=== PATIENT | male | born 1965 | race African-American/Black ===

== ENCOUNTER 2018-11-19 20:39 | Observation (INO) | payer OTHER ==
[2018-11-19] MEDS ORDERED: ASPIRIN 81 MG CHEWABLE TAB PO ONE (20:58)
--- NOTE | 2018-11-19 21:00 | EDPHY ---
H & P Stated Complaint: SOB x 3 weeks, midsternal "chest feels weird" x 1 day Time Seen by Provider: 11/19/18 20:49 HPI/ROS: CHIEF COMPLAINT: Chest discomfort HISTORY OF PRESENT ILLNESS: Patient is a 52-year-old man with history of type 2 diabetes and obesity with high blood pressure who comes to the emergency department complaining that his chest feels unusual. He cannot quite describe it. He states that it is not painful but feels different. Not heavy. No nausea or vomiting. No diaphoresis. No lightheadedness. He also describes shortness of breath with exertion for the last several weeks. He has noticed it particularly when he climbs the stairs. His states that he could not clean the bathroom without stopping to breathe. No recent travel. No leg swelling or pain. No recent fevers or illness. No cough. Used to smoke but no longer does. Severity: Moderate Modifying factors: None not worsened by palpation or movement REVIEW OF SYSTEMS: Constitutional: denies: chills, fever, recent illness, recent injury EENTM: denies: blurred vision, double vision, nose congestion Respiratory: denies: cough, shortness of breath Cardiac: See HPI Gastrointestinal/Abdominal: denies: abdominal pain, diarrhea, nausea, vomiting, blood streaked stools Genitourinary: denies: dysuria, frequency, hematuria, pain Musculoskeletal: denies: joint pain, muscle pain Skin: denies: lesions, rash, jaundice, bruising Neurological: denies: headache, numbness, paresthesia, tingling, dizziness, weakness Hematologic/Lymphatic: denies: blood clots, easy bleeding, easy bruising Immunologic/allergic: denies: HIV/AIDS, transplant 10 systems reviewed and negative except as noted EXAM: GENERAL: Well-appearing, well-nourished and in no acute distress. HEAD: Atraumatic, normocephalic. EYES: Pupils equal round and reactive to light, extraocular movements intact, sclera anicteric, conjunctiva are normal. ENT: TMs normal, nares patent, oropharynx clear without exudates. Moist mucous membranes. NECK: Normal range of motion, supple without lymphadenopathy or JVD. LUNGS: Breath sounds clear to auscultation bilaterally and equal. No wheezes rales or rhonchi. HEART: Regular rate and rhythm without murmurs, rubs or gallops. ABDOMEN: Soft, nontender, normoactive bowel sounds. No guarding, no rebound. No masses appreciated. BACK: No CVA tenderness, no spinal tenderness, step-offs or deformities EXTREMITIES: Normal range of motion, no pitting or edema. No clubbing or cyanosis. NEUROLOGICAL: Cranial nerves II through XII grossly intact. Normal speech, normal gait. 5/5 strength, normal movement in all extremities, normal sensation , normal reflexes PSYCH: Normal mood, normal affect. SKIN: Warm, dry, normal turgor, no visible rashes or lesions. Source: Patient Exam Limitations: No limitations - Personal History Current Tetanus Diphtheria and Acellular Pertussis (TDAP): Yes Tetanus Vaccine Date: within 10 years - Medical/Surgical History Hx Asthma: No Hx Chronic Respiratory Disease: No Hx Diabetes: Yes Hx Cardiac Disease: No Hx Renal Disease: No Hx Cirrhosis: No Hx Alcoholism: No Hx HIV/AIDS: No Hx Splenectomy or Spleen Trauma: No Other PMH: DM type 2, HTN, Hep B, appendectomy - Family History Significant Family History: No pertinent family hx - Social History Smoking Status: Former smoker Alcohol Use: Sober Constitutional: Initial Vital Signs Temperature (C) 37.0 C 11/19/18 20:43 Heart Rate 64 11/19/18 20:43 Respiratory Rate 16 11/19/18 20:43 Blood Pressure 115/68 11/19/18 20:43 O2 Sat (%) 99 11/19/18 20:43 O2 Delivery Mode Room Air Allergies/Adverse Reactions: No Known Allergies Allergy (Verified 11/19/18 20:51) Home Medications: Medication Instructions Recorded Atenolol 11/19/18 Felodipine 11/19/18 Losartan Potassium 11/19/18 Metformin HCl 11/19/18 Pravastatin Sodium 11/19/18 Spironolactone 11/19/18 Medical Decision Making - Diagnostics EKG Interpretation: An EKG obtained and was read and documented in trace view. Please see trace view for full reading and report. Sinus rhythm, no acute ischemic changes Imaging Results: Imaging Impressions Chest X-Ray 11/19/18 20:56 Impression: Query low-grade congestive failure. Imaging: Discussed imaging studies w/ orthopedically impaired teacher Radiologist ED Course/Re-evaluation: 9:18 p.m. the patient is severely anemic. He reports occasional dark stools. He tells me that the [facility] has been trying to get him to go colonoscopy because he is chronically anemic. Have sent for type and screen. He will require transfusion further workup. Hemoccult taken. Does not appear grossly bloody. 920 p.m. patient and accept transfer to [facility]. Discussed the case with Dr. Arriaga who will admit. Have ordered type and screen which will be. Differential Diagnosis: Partial list of the Differential diagnosis considered include but were not limited to; anemia, acute coronary disease, CHF and although unlikely based on the history and physical exam, I also considered PE, infection. - Data Points Laboratory Results: Laboratory Results 11/19/18 21:00 11/19/18 11/19/18 11/19/18 21:03 21:03 21:00 WBC RBC Hgb Hct MCV MCH MCHC RDW Plt Count MPV Neut % (Auto) Lymph % (Auto) [place] % (Auto) Eos % (Auto) Baso % (Auto) Nucleat RBC Rel Count Absolute Neuts (auto) Absolute Lymphs (auto) Absolute Monos (auto) Absolute Eos (auto) Absolute Basos (auto) Absolute Nucleated RBC Immature Gran % Immature Gran # Platelet Estimate Polychromasia Hypochromasia Microcytic Cells Schistocytes Smear Review By POC Sodium 136 mEq/L mEq/L (135-145) POC Potassium 4.1 mEq/L mEq/L (3.3-5.0) POC Chloride 99.0 mEq/L mEq/L (97-110) POC Total CO2 27 mEq/L mEq/L (22-31) POC BUN 20 mg/dL mg/dL (7-23) POC Creatinine 0.9 mg/dL mg/dL (0.7-1.3) POC Glucose 121 mg/dL H mg/dL (70-100) POC Calcium 9.1 mg/dL mg/dL (8.5-10.4) POC Total Bilirubin 1.0 mg/dL mg/dL (0.1-1.4) POC AST 34 IU/L IU/L (17-59) POC ALT 32 IU/L IU/L (21-72) POC Alk Phosphatase 57 IU/L IU/L (38-126) POC Troponin I 0.01 ng/mL ng/mL (0.00-0.08) POC Total Protein 6.7 g/dL g/dL (6.3-8.2) POC Albumin 3.3 g/dL L g/dL (3.5-5.0) Patient ABO/Rh O POSITIVE Antibody Screen NEGATIVE Crossmatch IS Only See Detail 11/19/18 21:00 WBC 7.48 10^3/uL 10^3/uL (3.80-9.50) RBC 3.26 10^6/uL L 10^6/uL (4.40-6.38) Hgb 5.2 g/dL L* g/dL (13.7-17.5) Hct 19.0 % L % (40.0-51.0) MCV 58.3 fL L fL (81.5-99.8) MCH 16.0 pg L pg (27.9-34.1) MCHC 27.4 g/dL L g/dL (32.4-36.7) RDW 18.6 % H % (11.5-15.2) Plt Count 243 10^3/uL 10^3/uL (150-400) MPV TNP Neut % (Auto) 80.2 % H % (39.3-74.2) Lymph % (Auto) 9.8 % L % (15.0-45.0) [place] % (Auto) 9.1 % % (4.5-13.0) Eos % (Auto) 0.3 % L % (0.6-7.6) Baso % (Auto) 0.3 % % (0.3-1.7) Nucleat RBC Rel Count 1.0 % H % (0.0-0.2) Absolute Neuts (auto) 6.29 10^3/uL 10^3/uL (1.70-6.50) Absolute Lymphs (auto) 0.77 10^3/uL L 10^3/uL (1.00-3.00) Absolute Monos (auto) 0.71 10^3/uL 10^3/uL (0.30-0.80) Absolute Eos (auto) 0.02 10^3/uL L 10^3/uL (0.03-0.40) Absolute Basos (auto) 0.02 10^3/uL 10^3/uL (0.02-0.10) Absolute Nucleated RBC 0.08 10^3/uL H 10^3/uL (0-0.01) Immature Gran % 0.3 % % (0.0-1.1) Immature Gran # 0.02 10^3/uL 10^3/uL (0.00-0.10) Platelet Estimate ADEQUATE (ADEQ) Polychromasia 2+ H Hypochromasia 2+ H Microcytic Cells 3+ H Schistocytes 1+ H Smear Review By Pending POC Sodium POC Potassium POC Chloride POC Total CO2 POC BUN POC Creatinine POC Glucose POC Calcium POC Total Bilirubin POC AST POC ALT POC Alk Phosphatase POC Troponin I POC Total Protein POC Albumin Patient ABO/Rh Antibody Screen Crossmatch IS Only Medications Given: Sodium Chloride (Ns) 1,000 mls @ 75 mls/hr IV CONT IT Stop: 05/18/19 22:14 Last Admin: 11/19/18 23:43 Dose: 1,000 mls Discontinued Medications Aspirin (Aspirin) 324 mg PO EDNOW ONE Stop: 11/19/18 20:59 Last Admin: 11/19/18 21:00 Dose: 324 mg Point of Care Test Results: Chemistry 11/19/18 11/19/18 21:03 21:03 POC Sodium 136 mEq/L mEq/L (135-145) POC Potassium 4.1 mEq/L mEq/L (3.3-5.0) POC Chloride 99.0 mEq/L mEq/L (97-110) POC Total CO2 27 mEq/L mEq/L (22-31) POC BUN 20 mg/dL mg/dL (7-23) POC Creatinine 0.9 mg/dL mg/dL (0.7-1.3) POC Glucose 121 mg/dL H mg/dL (70-100) POC Calcium 9.1 mg/dL mg/dL (8.5-10.4) POC Total Bilirubin 1.0 mg/dL mg/dL (0.1-1.4) POC AST 34 IU/L IU/L (17-59) POC ALT 32 IU/L IU/L (21-72) POC Alk Phosphatase 57 IU/L IU/L (38-126) POC Troponin I 0.01 ng/mL ng/mL (0.00-0.08) POC Total Protein 6.7 g/dL g/dL (6.3-8.2) POC Albumin 3.3 g/dL L g/dL (3.5-5.0) Comprehensive Metabolic Panel CMP Collection Date 11/19/18 CMP Collection Time 21:03 D-Dimer D-Dimer Collection Date 11/19/18 D-Dimer Collection Time 21:03 D-Dimer (ng/ml) <100 Departure - Departure Disposition: [facility] Inpatient Acute Clinical Impression: Shortness of breath Anemia Qualifiers: Anemia type: unspecified type Qualified Code(s): D64.9 - Anemia, unspecified Chest pain Qualifiers: Chest pain type: unspecified Qualified Code(s): R07.9 - Chest pain, unspecified Condition: Fair
--- NOTE | 2018-11-19 21:18 | CPEKG ---
Test Reason : OPEN Blood Pressure : / mmHG Vent. Rate : 061 BPM Atrial Rate : 061 BPM P-R Int : 194 ms QRS Dur : 098 ms QT Int : 414 ms P-R-T Axes : 028 -01 005 degrees QTc Int : 417 ms Sinus rhythm Confirmed by Tai Wiggins ([id number]) on 11/19/2018 9:17:45 PM Referred By: Tai Wiggins Confirmed By:Tai Wiggins
[2018-11-19] MEDS ORDERED: HYDROCODONE/APAP 5/325 TAB PO PRN (22:09)
[2018-11-19] MEDS ORDERED: ONDANSETRON 4 MG/2 ML VIAL IVP PRN (22:09)
[2018-11-19] MEDS ORDERED: ACETAMINOPHEN 325 MG TAB PO PRN (22:09)
[2018-11-19] MEDS ORDERED: ONDANSETRON DISINTEGRATING 4 MG TAB PO PRN (22:09)
[2018-11-19] MEDS ORDERED: NS 1,000 ML IV SCH (22:15)
[2018-11-19 23:42] LABS: PLATELET COUNT 243 10^3/uL (150-400)
[2018-11-19 23:55] LABS: INR 1.12 (0.83-1.16)
[2018-11-20 00:54] LABS: PLATELET COUNT 235 10^3/uL (150-400)
--- NOTE | 2018-11-20 01:46 | PDGENHP ---
History and Physical - Chief Complaint fatigue, chest discomfort - History of Present Illness Source - Patient provides history and appears reliable. is at bedside and supplements details. EMR reviewed and case discussed with accepting hospitalist. HPI - This is a very pleasant 52 yo M with pmhx significant for chronic HBV, longstanding history of anemia,HTN, DM II, JENNY and chronic back pain who presents to the ED at [facility] this evening with complaints of fatigue and chest discomfort. Patient reports an upper/midsternal "sensation" that started while at rest. He denies any pain or pressure. No dysphagia. No nausea/vomiting/ diaphoresis. Patient also notes for the last 3 weeks he has been feeling increasingly fatigued. He denies any lightheadedness/presyncope/dyspnea. no LE edema, orthopnea, PND. Patient notes he has a previous anemia work up approximately 12 years ago at the [place] including labs, EGD/Colonoscopy. Patient reports endoscopy was not revealing and anemia was not this severe. History Information - Allergies/Home Medication List Allergies/Adverse Reactions: No Known Allergies Allergy (Verified 11/19/18 20:51) Home Medications: Atenolol 11/19/18 [Last Taken Unknown] Felodipine 11/19/18 [Last Taken Unknown] Losartan Potassium 11/19/18 [Last Taken Unknown] Metformin HCl 11/19/18 [Last Taken Unknown] Pravastatin Sodium 11/19/18 [Last Taken Unknown] Spironolactone 11/19/18 [Last Taken Unknown] I have personally reviewed and updated: family history, medical history, social history, surgical history - Past Medical History diabetes type 2, hypertension Additional medical history: HBV. DM II. HTN. JENNY. chronic back pain. - Surgical History Additional surgical history: egd/c-scope. 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 Review of Systems Review of Systems: ROS: 10pt was reviewed & negative except for what was stated in HPI & below Constitutional: Reports: chills (always cold. ), other (weight gain 8 lbs. good appetite. ). Denies: fever Cardiac: Reports: other (see hpi. ). Denies: edema, lightheadedness, palpitations Respiratory: Reports: no symptoms Gastrointestinal: Reports: no symptoms Genitourinary: Reports: no symptoms Muscolosketal: Reports: no symptoms Skin: Reports: other (pale) Neurological: Reports: no symptoms Hematologic/Lymphatic: Reports: anemia. Denies: easy bleeding, easy bruising Physical Exam Physical Exam: Selected Entries 11/19/18 20:43 Blood Pressure Automatic Method Heart Rate 64 Respiratory 16 Rate O2 Sat (%) 99 Temperature (C) 37.0 C Blood Pressure 115/68 Mean Arterial 83 Pressure (MAP) O2 Delivery Room Air Mode Temperature Oral Source Temp Pulse Resp BP Pulse Ox 36.7 C 59 L 14 110/58 L 93 11/20/18 00:41 11/20/18 00:41 11/20/18 00:41 11/20/18 00:41 11/20/18 00:41 O2 (L/minute) 0 Eyes: PERRL (decreased reactivity to light bilaterally but symmetric. ), anicteric sclera, EOMI, No scleral injection Ears, Nose, Mouth, Throat: moist mucous membranes, other (pale mucous membranes) , No poor dentition Cardiovascular: regular rate and rhythym, no murmur, rub, or gallop, No edema Peripheral Pulses: 2+: dorsalis-pedis (R), dorsalis-pedis (L) Respiratory: no respiratory distress, no rales or rhonchi, clear to auscultation , No inspiratory crackles Gastrointestinal: normoactive bowel sounds, soft, non-tender abdomen, no palpable masses, distension (obese abdomen with some minimal distension), No ascites Genitourinary: no bladder tenderness, No chapa in urethra Skin: warm, no rashes or abrasions Neurologic: AAOx3, sensation intact bilaterally, other (grossly nonfocal. ), No facial droop Psychiatric: interacting appropriately, not anxious, not encephalopathic, thought process linear, other (patient thought process appropriate. he is pleasant and cooperative. ) Lab Data & Imaging Review 11/19/18 23:36 WBC 8.03 10^3/uL (3.80-9.50) 11/19/18 23:36 RBC 3.33 10^6/uL (4.40-6.38) L 11/19/18 23:36 Hgb 5.3 g/dL (13.7-17.5) L* 11/19/18 23:36 Hct 19.3 % (40.0-51.0) L 11/19/18 23:36 MCV 58.0 fL (81.5-99.8) L 11/19/18 23:36 MCH 15.9 pg (27.9-34.1) L 11/19/18 23:36 MCHC 27.5 g/dL (32.4-36.7) L 11/19/18 23:36 RDW 18.3 % (11.5-15.2) H 11/19/18 23:36 Plt Count 235 10^3/uL (150-400) 11/19/18 23:36 MPV TNP 11/19/18 23:36 Neut % (Auto) 76.9 % (39.3-74.2) H 11/19/18 23:36 Lymph % (Auto) 14.1 % (15.0-45.0) L 11/19/18 23:36 [place] % (Auto) 8.6 % (4.5-13.0) 11/19/18 23:36 Eos % (Auto) 0.1 % (0.6-7.6) L 11/19/18 23:36 Baso % (Auto) 0.1 % (0.3-1.7) L 11/19/18 23:36 Nucleat RBC Rel Count 0.7 % (0.0-0.2) H 11/19/18 23:36 Absolute Neuts (auto) 6.17 10^3/uL (1.70-6.50) 11/19/18 23:36 Absolute Lymphs (auto) 1.13 10^3/uL (1.00-3.00) 11/19/18 23:36 Absolute Monos (auto) 0.69 10^3/uL (0.30-0.80) 11/19/18 23:36 Absolute Eos (auto) 0.01 10^3/uL (0.03-0.40) L 11/19/18 23:36 Absolute Basos (auto) 0.01 10^3/uL (0.02-0.10) L 11/19/18 23:36 Absolute Nucleated RBC 0.06 10^3/uL (0-0.01) H 11/19/18 23:36 Immature Gran % 0.2 % (0.0-1.1) 11/19/18 23:36 Immature Gran # 0.02 10^3/uL (0.00-0.10) 11/19/18 23:36 Platelet Estimate ADEQUATE (ADEQ) 11/19/18 23:36 Polychromasia 2+ H 11/19/18 23:36 Hypochromasia 3+ H 11/19/18 23:36 Microcytic Cells 3+ H 11/19/18 23:36 Schistocytes 1+ H 11/19/18 21:00 PT 14.0 SEC (12.0-15.0) 11/19/18 23:36 INR 1.12 (0.83-1.16) 11/19/18 23:36 APTT 29.4 SEC (23.0-38.0) 11/19/18 23:36 POC Sodium 136 mEq/L (135-145) 11/19/18 21:03 POC Potassium 4.1 mEq/L (3.3-5.0) 11/19/18 21:03 POC Chloride 99.0 mEq/L (97-110) 11/19/18 21:03 POC Total CO2 27 mEq/L (22-31) 11/19/18 21:03 POC BUN 20 mg/dL (7-23) 11/19/18 21:03 POC Creatinine 0.9 mg/dL (0.7-1.3) 11/19/18 21:03 POC Glucose 121 mg/dL (70-100) H 11/19/18 21:03 POC Calcium 9.1 mg/dL (8.5-10.4) 11/19/18 21:03 Iron < 10.0 mcg/dL (49.0-199.0) L 11/19/18 23:36 TIBC 456 ug/dL (260-490) 11/19/18 23:36 Ferritin 1.7 ng/mL (17.9-464.0) L 11/19/18 23:36 POC Total Bilirubin 1.0 mg/dL (0.1-1.4) 11/19/18 21:03 POC AST 34 IU/L (17-59) 11/19/18 21:03 POC ALT 32 IU/L (21-72) 11/19/18 21:03 POC Alk Phosphatase 57 IU/L (38-126) 11/19/18 21:03 POC Troponin I 0.01 ng/mL (0.00-0.08) 11/19/18 21:03 Troponin I < 0.012 ng/mL (0.000-0.034) 11/19/18 23:36 POC Total Protein 6.7 g/dL (6.3-8.2) 11/19/18 21:03 POC Albumin 3.3 g/dL (3.5-5.0) L 11/19/18 21:03 TSH 1.260 uIU/mL (0.465-4.680) 11/19/18 23:36 Patient ABO/Rh O POSITIVE 11/19/18 21:00 Antibody Screen NEGATIVE 11/19/18 21:00 Crossmatch IS Only See Detail 11/19/18 21:00 Imaging Review: PA and Lateral Chest History: Chest pain. Findings: The heart is borderline enlarged. There is minimal pulmonary venous prominence. No pleural effusion is seen.. The lungs are clear. A pneumothorax is not identified. Impression: Query low-grade congestive failure. Dictated By: Oni Singleton MD EKG additional interpertation: NSR 60s. no acute ST changes. QTc 417. t wave inversion III. Assessment & Plan Assessment: This is a very pleasant 52 yo M with pmhx significant for chronic HBV, longstanding history of anemia,HTN, DM II, JENNY and chronic back pain who presents to the ED at [facility] this evening with complaints of fatigue and chest discomfort. #Anemia (Acute) - microcytic anemia suspcious for a anemia of chronic blood loss. check occult stool given patient complaint of regularly blood bowel movements. neg gauic in ED. iron studies in process but iron level is severely depleted. no evidence of hemolyzation at this point. Patient additionally with history of HBV but LFTs and coags WNL. discuss with GI in AM as per day team. transfuse 2 units now and HH check. patient compensated. hh goal >01/24. #Chest discomfort (Acute) - patient symptoms resolved. he denies and history of chest pain. no associated SOB, palpitations, diaphoresis. possibly 2/2 severe enemia. am troponin and ekg. HEART score - 3. morphine/nitro prn chest pain. #fatigue -2/2 anemia. TSH WNL. symptoms improving with transfusion. chronic medical issues #benign essential HTN - BPs low normal. monitor currently while undergoing transfusion. consider resuming home medications stepwise. #HLD - resume statin #DM II - continue metformin. #HBV - spironolactone. appears very well compensated FEN - IVF with prbc. electrolyte monitoring and replacement prn. NPO after midnight PPX - SCDs. holding anticoagulation in setting of anemia COR - FULL Dispo - Patient admitted to inpatient status on PCU floor for additional evaluation of anemia and cardiac monitoring. anticipate > 2 midnight stay.
[2018-11-20 08:13] LABS: PLATELET COUNT 211 10^3/uL (150-400)
--- NOTE | 2018-11-20 08:39 | ASMTCMCOM ---
CM Note CM Note Notes: Chart reviewed for discharge planning purposes. 52 year old male admitted via ED with c/o fatigue and vague chest discomfort. Normally lives independent with . Profoundly anemic. CM to follow for needs. Plan: TBD Date Signed: 11/20/2018 08:38 AM Electronically Signed By:Maryellen Holguin RN
--- NOTE | 2018-11-20 10:10 | HOSPPROG ---
Hospitalist Progress Note Assessment/Plan: 52 yo M w longstanding brbpr here w symptomatic severe iron deficiency anemia anemia: chronic blood loss has hemorrhoids but this seems exemplary blood loss for just that warrants endoscopy GI eval pending NPO for npw iron deficiency: has received 2 units will give IV iron daily hep B: continue entacavir unclear if sig liver disease labs suggest mild, if any, liver disease htn: hold meds today given sig anemia dispo: inpt proph: hold Subjective: case d/w dr wills. notes longstanding h/o brbpr. no known liver disease Objective: Vital Signs Temp Pulse Resp BP Pulse Ox 36.6 C 62 18 125/72 H 94 11/20/18 08:00 11/20/18 08:00 11/20/18 08:00 11/20/18 08:00 11/20/18 08:00 Laboratory Results 11/20/18 07:41 11/20/18 07:41 11/19/18 11/20/18 11/21/18 05:59 05:59 05:59 Intake Total 1003 Balance 1003 PT 14.0 SEC (12.0-15.0) 11/19/18 23:36 INR 1.12 (0.83-1.16) 11/19/18 23:36 - Physical Exam Constitutional: no apparent distress, appears nourished Eyes: PERRL, anicteric sclera Ears, Nose, Mouth, Throat: moist mucous membranes, hearing normal Cardiovascular: regular rate and rhythym, no murmur, rub, or gallop Respiratory: no respiratory distress, no rales or rhonchi Gastrointestinal: normoactive bowel sounds, soft, non-tender abdomen Genitourinary: No chapa in urethra Skin: warm, normal color Musculoskeletal: full muscle strength, normal joint ROM Neurologic: AAOx3 ICD10 Worksheet Patient Problems: Problems Problem Status Onset Anemia Acute Chest pain Acute Shortness of breath Acute
[2018-11-20] MEDS: SODIUM FERRIC GLUCONAT/SUCROSE 125 MG in NS 100 ML IV SCH (10:56)
--- NOTE | 2018-11-20 11:41 | PDMN ---
Medical Necessity Medical necessity: Pt meets inpt criteria per MD order and MCG M-35, Anemia, Iron Deficiency or Unspecified, A-1 days, inpt adm indicated for chronic blood loss (longstanding brbpr), may need endoscopy, GI eval pending, H/H 5.2 on admission, has rec'd 2U blood, iron severely low at <10.0 and ferritin 1.7, IV iron to be given, NPO for possible GI procedure. 52 y/o w/PMH of chronic HBV, anemia, DM2, JENNY and chronic back pain admitted w/symptomatic severe iron deficiency anemia, fatigue, and acute chest discomfort. Est LOS>2MN for further eval/management of above.
--- NOTE | 2018-11-20 11:54 | GCON ---
[f rep st] CONSULTATION DATE OF CONSULTATION: 11/20/2018 REQUESTING PROVIDERS: Dr. Skip Díaz HISTORY OF PRESENT ILLNESS: Dear Dr. Díaz: Thank you very kindly for asking me to evaluate the patient in consultation for a chief complaint of hematochezia and iron deficiency anemia. He is a pleasant 52-year-old gentleman who was admitted to the hospital yesterday because of fatigue and chest discomfort. He describes the pain as something m ore like a dull ache in his midsternum. He had no shortness of breath, but he did notice exertional fatigue. He was found to be significantly anemic with a hemoglobin of 5. He has a history of chroni c hepatitis B without known cirrhosis, and has been on entecavir for a very long time, which sounds l nayeli through the [facility]. He has underlying hypertension and diabetes. The patient says th at he had anemia previously evaluated, but it has been somewhat remote. He thinks about maybe 10 or 12 years ago he had an upper endoscopy and colonoscopy for evaluation of iron deficiency, and says th at he was not found to have a reason for it. His only real symptom is for long-standing and ongoing hematochezia. He describes daily bright red blood per rectum that is painless. The bowel movements otherwise look normal. There has been no melena or hematemesis. He currently denies any abdominal p ain. PAST MEDICAL HISTORY: Significant for hypertension, diabetes, sleep apnea, chronic back pain, chroni c hepatitis B on entecavir, iron deficiency anemia, hematochezia attributed to hemorrhoids. PAST SURGICAL HISTORY: Appendectomy. He had an upper endoscopy and colonoscopy about 12 years ago t hat he says was negative. FAMILY HISTORY: Negative for anemia or colon cancer. SOCIAL HISTORY: The patient is a remote tobacco smoker. He works at [employer] in [employer]. He is a . No substance abuse. No tobacco abuse. No alcoholism. REVIEW OF SYSTEMS: CONSTITUTIONAL: Denies fever or chills. No weight loss. He does feel fatigued. HEENT: No epistaxis. No headache. No sore throat. PULMONARY: Shortness of breath with exertion . CARDIOVASCULAR: He has had some midsternal chest pain, but not currently. No palpitations. No s yncope. GI: Reports chronic bright red blood per rectum. No other gastrointestinal symptoms. RHEU MATOLOGIC: Chronic back pain. No other joint swelling or pain. DERMATOLOGIC: No pruritus or rash. ENDOCRINE: He says he feels cold a good deal of the time. No excessive thirst. GENITOURINARY: Den ies hematuria. No flank pain. NEURO: Has no paresthesias, falls or weakness. ALLERGIES: None known. PHYSICAL EXAM: VITAL SIGNS: Blood pressure is 125/72, his pulse is 62 and regular, respirations are 18, oxygenation is 94% on room air, temperature is 36.6. GENERAL: No acute distress. HEENT: Scle marko anicteric. NECK: Supple. No blood in the oropharynx. PULMONARY: Lungs clear. CARDIOVASCULAR : Regular rate and rhythm. No murmur, rub, or gallop. GI: Abdomen is obese, but soft, nontender, nondistended. No abdominal bruit. MUSCULOSKELETAL: No joint deformity. No palmar erythema. DERMAT OLOGIC: No spider angiomata. No notable jaundice. NEUROLOGIC: Alert to person, place, and time wi th normal speech and affect. Nonfocal motor. Gait is not ataxic. DATABASE: Includes the following: CBC on admission shows a white blood count of 7.4, hemoglobin is 5.2, with a hematocrit of 19, MCV is 58.3, RDW 18.6, platelets are 243. He has received 2 units of p acked cells and his hematocrit is now 23.1 with a hemoglobin of 6.7. INR is 1.12. Sodium 136, potas sium 4.2, chloride 103, bicarbonate 23, BUN 17, creatinine 0.9, glucose is 99. Iron is less than 10 with a ferritin of 1.7. TSH is 1.26. LFTs show an AST of 34, ALT of 32, alkaline phosphatase 57, al bumin 3.3, total protein 6.7. IMPRESSION: 1. Anemia, microcytic. 2. Iron deficiency. 3. Hematochezia. 4. Hepatitis B. 5. Sleep apnea. 6. Diabetes. 7. Hypertension. RECOMMENDATIONS: 1. He has received 2 units of packed red blood cells and his hematocrit is 23, and I believe good en ough for now. 2. Iron infusion today. 3. IV PPI twice daily. 4. Clear liquid diet today. 5. GoLYTELY prep overnight. 6. EGD, colonoscopy will be arranged for tomorrow to interrogate his iron deficiency anemia. 7. Further recommendations to follow the results of his procedures. 8. If he has no other source of bleeding and therefore it is felt perhaps his chronic hematochezia f rom hemorrhoids are the source of this, then consideration for surgical management of hemorrhoidal bl eeding will be considered. 9. Whether or not to perform a capsule endoscopy prior to considering hemorrhoidal surgery will need to be entertained. /[id number]/MODL
[2018-11-20] MEDS ORDERED: PEG 3350/NA SULF,BICARB,CL/KCL (GAVILYTE-G) 4000 ML BTL PO ONE (18:00)
[2018-11-21] MEDS ORDERED: PRAVASTATIN SODIUM 10 MG TAB PO SCH (09:00)
--- NOTE | 2018-11-21 09:46 | PDANEPAE ---
ANE History of Present Illness 52 yo egd/colonoscopy ANE Past Medical History - Cardiovascular History Hx Hypertension: Yes Hx Arrhythmias: No Hx Chest Pain: No Hx Coronary Artery / Peripheral Vascular Disease: No Hx CHF / Valvular Disease: No Hx Palpitations: No - Pulmonary History Hx COPD: No Hx Asthma/Reactive Airway Disease: No Hx Recent Upper Respiratory Infection: No Hx Oxygen in Use at Home: No Hx Sleep Apnea: Yes Sleep Apnea Screening Result - Last Documented: Positive - Endocrine History Hx Diabetes: Yes - Chronic Pain History Chronic Pain: Yes (Lower back pain) ANE Review of Systems Review of Systems: - Exercise capacity METS (RN): 4 METS ANE Patient History - Allergies Allergies/Adverse Reactions: No Known Allergies Allergy (Verified 11/19/18 20:51) - Home Medications Home medications: home medication list seen and reviewed Home Medications: Atenolol [Tenormin 50 mg (*)] 50 mg PO DAILY 11/20/18 [Last Taken 11/19/18] Entecavir 0.5 mg PO DAILY 11/20/18 [Last Taken 11/19/18] Felodipine [Plendil 5 MG (*)] 5 mg PO DAILY 11/20/18 [Last Taken 11/19/18] Losartan/Hydrochlorothiazide [Losartan-Hctz 100-25 mg Tab] 1 each PO DAILY 11/20 [Last Taken 11/19/18] Pravastatin Sodium [Pravachol] 10 mg PO DAILY 11/20/18 [Last Taken 11/19/18] Spironolactone [Aldactone 25 MG (*)] 25 mg PO DAILY 11/20/18 [Last Taken Unknown ] metFORMIN HCL [Metformin ER Gastric] 1,000 mg PO BIDMEAL 11/20/18 [Last Taken ] - NPO status NPO Status: no food or drink >8 hours NPO Since - Liquids (Date): 11/21/18 NPO Since - Liquids (Time): 00:01 NPO Since - Solids (Date): 11/21/18 NPO Since - Solids (Time): 00:01 - Smoking Hx Smoking Status: Former smoker - Alcohol Use Alcohol Use: Sober ANE Labs/Vital Signs - Labs Result Diagrams: 11/20/18 07:41 11/20/18 07:41 - Vital Signs Blood Pressure: 119/76 Heart Rate: 69 Respiratory Rate: 17 O2 Sat (%): 95 Height: 6 ft 5 in Weight: 124 kg ANE Physical Exam - Airway Neck exam: FROM Mallampati Score: Class 2 Mouth exam: normal dental/mouth exam - Pulmonary Pulmonary: no respiratory distress - Cardiovascular Cardiovascular: regular rate and rhythym - ASA Status ASA Status: III ANE Anesthesia Plan Anesthesia Plan: MAC
[2018-11-21] MEDS ORDERED: PROPOFOL/EMULSION 500 MG/50 ML BOTTLE IV ONE (09:55)
[2018-11-21] MEDS ORDERED: fentaNYL 100 MCG/2 ML INJ ONE (09:58)
[2018-11-21] MEDS ORDERED: PROPOFOL 200 MG/20 ML VIAL ONE (10:20)
--- NOTE | 2018-11-21 10:38 | GIREPORT ---
[facility] Surgical Services - Endoscopy Department Patient Name: Willie Andersen Procedure Date: 11/21/2018 9:52 AM Patient Type: Inpatient Attending MD/ ER Physician: Puneet Schwartz MD Procedure: Colonoscopy Indications: Iron deficiency anemia secondary to chronic blood loss, Unexplained iro n deficiency anemia Providers: Puneet Schwartz MD Referring MD: Benita Dueñas MD Medicines: Propofol per Anesthesia = IV general with spont resps Complications: No immediate complications. Estimated blood loss: Minimal. Description of Procedure: After obtaining informed consent, the scope was passed under direct vis ion. Throughout the procedure, the patient's blood pressure, pulse, and oxyg en saturations were monitored continuously. The Colonoscope with irrigatio n channel was introduced through the anus and advanced to the cecum, identified by the appendiceal orifice, ileocecal valve and palpation. T he colonoscopy was performed without difficulty. The patient tolerated the procedure well. The quality of the bowel preparation was good. Findings: The digital rectal exam findings include non-thrombosed external hemorr hoids. A 4 mm polyp was found in the distal descending colon. The polyp was sessile. The polyp was removed with a piecemeal technique using a cold biopsy forceps. Resection and retrieval were complete. Estimated blood loss was minimal. A 7 mm polyp was found in the sigmoid colon. The polyp was semi-sessile . The polyp was removed with a cold snare. Resection and retrieval were compl ete. Estimated blood loss was minimal. Many small-mouthed diverticula were found in the sigmoid colon and descending colon. The exam was otherwise without abnormality. Estimated Blood Loss: Estimated blood loss was minimal. Post Op Diagnosis: - Non-thrombosed external hemorrhoids found on digital rectal exam. - One 4 mm polyp in the distal descending colon, removed piecemeal usin g a cold biopsy forceps. Resected and retrieved. - One 7 mm polyp in the sigmoid colon, removed with a cold snare. Resec ivan and retrieved. - Diverticulosis in the sigmoid colon and in the descending colon. - The examination was otherwise normal. Recommendation: - Await pathology results. - My office will call with the pathology result with 5-7 days. If you h ave not heard from my office by 12-14, do not assume the pathology is alondra l, please call [phone] to get the pathology results. - Repeat colonoscopy in 5 years. - High fiber diet indefinitely. - 30-35 grams of dietary fiber per day. Can use supplemental fiber. - A high fiber diet may decrease risk of complications from diverticulo sis. There is no need to avoid seeds or nuts. - See EGD for other recommendations. PUD accounts for his anemia. - [facility] to [facility] same day. - Return to primary care physician as previously scheduled. - Thank you for allowing me to help in your patient's care. Do not hesi higuera to call with any questions. Attending Participation: I personally performed the entire procedure. Lana Connell M.D Puneet Schwartz MD 11/21/2018 10:37:40 AM This report has been signed electronicallyMattjody Schwartz MD Number of Addenda: 0 Note Initiated On: 11/21/2018 9:52 AM Total Procedure Duration Time 0 hours 14 minutes 59 seconds [email or web address]
[2018-11-21] MEDS ORDERED: ALBUTEROL 3 ML DEYVIAL IH PRN (10:42)
[2018-11-21] MEDS ORDERED: fentaNYL 100 MCG/2 ML INJ IVP PRN (10:42)
[2018-11-21] MEDS ORDERED: NALOXONE HCL 0.4 MG/ML INJ IVP PRN (10:42)
--- NOTE | 2018-11-21 10:43 | GIREPORT ---
[facility] Surgical Services - Endoscopy Department Patient Name: Willie Andersen Procedure Date: 11/21/2018 9:53 AM Patient Type: Inpatient Attending MD/ ER Physician: Puneet Schwartz MD Procedure: Upper GI endoscopy Indications: Suspected upper gastrointestinal bleeding in patient with unexplained i dana deficiency anemia Providers: Puneet Schwartz MD Referring MD: Benita Dueñas MD Medicines: Propofol per Anesthesia = IV general with spont resps Complications: No immediate complications. Estimated blood loss: Minimal. Description of Procedure: After obtaining informed consent, the endoscope was passed under direct vision. Throughout the procedure, the patient's blood pressure, pulse, and oxygen saturations were monitored continuously. The Endoscope was intro duced through the mouth, and advanced to the third part of duodenum. The uppe r GI endoscopy was accomplished without difficulty. The patient tolerated th e procedure well. Findings: The examined esophagus was normal. Few non-bleeding cratered gastric ulcers with no stigmata of bleeding w ere found in the gastric antrum. The largest lesion was 4 mm in largest dimension. Scattered inflammation characterized by erosions, erythema, friability and granularity was found in the gastric body and in the gastric antrum. Biopsies were taken with a cold forceps for histology. Estimated blood loss was minimal. One non-bleeding cratered duodenal ulcer with no stigmata of bleeding w as found in the duodenal bulb. The lesion was 10 mm in largest dimension. Inflammation characterized by erythema, friability and granularity was found in the duodenal bulb, in the second portion of the duodenum and in the third portion of the duodenum. Biopsies were taken with a cold forceps for histology. Estimated blood loss was minimal. The exam was otherwise without abnormality. Estimated Blood Loss: Estimated blood loss was minimal. Post Op Diagnosis: - Normal esophagus. - Non-bleeding gastric ulcers with no stigmata of bleeding. - Gastritis. Biopsied. - One non-bleeding duodenal ulcer with no stigmata of bleeding. - Duodenitis. Biopsied. - The examination was otherwise normal. Recommendation: - Await pathology results. If no h pylori noted, check h pylori antibod y and treat if positive and confirm eradication no sooner then 3 months after antibiotics and off PPI for at least 2 weeks - My office will call with the pathology result with 5-7 days. If you h ave not heard from my office by 12-14, do not assume the pathology is aolndra l, please call [phone] to get the pathology results. - Use Protonix (pantoprazole) 40 mg PO daily for 3 months. - Repeat upper endoscopy in 3 months to check healing. With propofol. - Perform a colonoscopy today. - Return to primary care physician as previously scheduled. - [facility] to [facility]. - Thank you for allowing me to help in your patient's care. Do not hesi higuera to call with any questions. Attending Participation: I personally performed the entire procedure. Lana Connell M.D Puneet Schwartz MD 11/21/2018 10:43:12 AM This report has been signed electronicallyMattcecilyw MD Lana Number of Addenda: 0 Note Initiated On: 11/21/2018 9:53 AM [email or web address]
--- NOTE | 2018-11-21 10:49 | POSTANESTH ---
Post Anesthetic Evaluation Cardiovascular Status: Normal, Stable Respiratory Status: Normal, Stable Level of Consciousness/Mental Status: Can Participate in Eval Pain Control: Adequate, Prn Tx Ordered Nausea/Vomiting Control: Adequate, Prn Tx Ordered Complications Possibly Related to Anesthesia: None Noted
[2018-11-21 11:15] VITALS: BP 123/86
[2018-11-21] MEDS: SODIUM FERRIC GLUCONAT/SUCROSE 125 MG in NS 100 ML IV SCH (12:02)
[2018-11-21] MEDS ORDERED: PANTOPRAZOLE SODIUM 40 MG TAB PO SCH (13:00)
--- NOTE | 2018-11-21 15:06 | ASMTDCNOTE ---
Case Management Discharge Discharge Order Complete? Answers: Yes Patient to Obtain Answers: Independently Medications Transportation Arranged Answers: Family/Friends Family Notified Answers: Yes Discharge Comments Notes: patient medically cleared for discharge to home no needs identified. CM available should needs arise. Date Signed: 11/21/2018 03:05 PM Electronically Signed By:Maryellen Holguin RN
--- NOTE | 2018-11-21 15:06 | ASMTLACE ---
LACE Length of stay for Answers: 1 day current admission Acuity / Level of Answers: Yes Care: Did the patient have an inpatient admission? Comorbidities - select Answers: Chronic pulmonary disease all that apply Diabetes (uncontrolled or controlled) # of Emergency department Answers: 1-2 visits in the last 6 months Score: 8 Date Signed: 11/21/2018 03:06 PM Electronically Signed By:Maryellen Holguin RN
--- NOTE | 2018-11-21 17:38 | GDS ---
[f rep st] DISCHARGE SUMMARY DISCHARGE DIAGNOSES: 1. Gastric and duodenal ulcers. 2. Acute blood loss anemia. 3. Iron-deficiency anemia. 4. Chest pain due to anemia. 5. Chronic hepatitis B. 6. Obesity with obstructive sleep apnea. 7. Diabetes type 2. HISTORY: The patient is a 52-year-old male who was found to be severely anemic and iron deficient. He received a blood transfusion. Chest pain resolved with the resolution of anemia. GI was consulte d. Colonoscopy was unremarkable, except for a polyp removal. Upper endoscopy showed gastric and duo denal ulcers which were felt by Gastroenterology to be the likely source of blood loss. Pathology is pending. If positive for H pylori, he should be treated with antibiotics. He, otherwise, will cont inue on a proton pump inhibitor. Repeat EGD in 3 months. DISCHARGE MEDICATIONS: Please see computerized record for full detailed list. New medication: 1. Protonix 40 mg p.o. daily. 2. Ferrous sulfate 325 mg p.o. twice daily. ADDITIONAL DISCHARGE INSTRUCTIONS: 1. Watch blood pressure closely as it is running low here, despite holding typical medications. 2. Follow this up closely with primary care doctor, 2-3 days. 3. Follow up biopsy results of gastric duodenal ulcer and colon polyp with Dr. Schwartz. If positive for H pylori, recommend treating with antibiotics. 4. Repeat EGD in 3 months. Greater than 30 minutes' time was spent arranging this discharge. Patient was seen and examined by jennie vargas on the day of discharge. /[id number]/MODL
[2018-11-21] MEDS ORDERED: METFORMIN HCL 1000 MG PO SCH (18:00)
[2018-11-21] MEDS ORDERED: FERROUS SULFATE 325 MG TAB PO SCH (21:00)
== END 2018-11-21 15:50 | disposition home or self-care (01) ==
LOC: CED 20:39 → CEDHOLD 21:25 → INTOOBSV 21:25 → F2W 22:58
PROVIDERS: ADMIT Family Medicine; ATTEND Internal Medicine
PROC: 30233N1 Transfusion of Nonautologous Red Blood Cells into Peripheral Vein, Percutaneous Approach (ICD-10-PCS; 2018-11-20)
PROC: 0DJ08ZZ Inspection of Upper Intestinal Tract, Via Natural or Artificial Opening Endoscopic (ICD-10-PCS; principal; 2018-11-21 11:00)
PROC: 0DB68ZX Excision of Stomach, Via Natural or Artificial Opening Endoscopic, Diagnostic (ICD-10-PCS; principal; 2018-11-21 11:00)
PROC: 0DB98ZX Excision of Duodenum, Via Natural or Artificial Opening Endoscopic, Diagnostic (ICD-10-PCS; principal; 2018-11-21 11:00)
PROC: 0DJD8ZZ Inspection of Lower Intestinal Tract, Via Natural or Artificial Opening Endoscopic (ICD-10-PCS; principal; 2018-11-21 11:00)
PROC: 0DBN8ZX Excision of Sigmoid Colon, Via Natural or Artificial Opening Endoscopic, Diagnostic (ICD-10-PCS; principal; 2018-11-21 11:00)
DX: K25.0 Acute gastric ulcer with hemorrhage (principal); K26.0 Acute duodenal ulcer with hemorrhage; B96.81 Helicobacter pylori [H. pylori] as the cause of diseases classified elsewhere; D50.0 Iron deficiency anemia secondary to blood loss (chronic); K57.30 Diverticulosis of large intestine without perforation or abscess without bleeding; K63.5 Polyp of colon; K64.4 Residual hemorrhoidal skin tags; R07.9 Chest pain, unspecified; B18.1 Chronic viral hepatitis B without delta-agent; E78.00 Pure hypercholesterolemia, unspecified; G47.33 Obstructive sleep apnea (adult) (pediatric); E11.9 Type 2 diabetes mellitus without complications; I10 Essential (primary) hypertension; Z87.891 Personal history of nicotine dependence
CPT/HCPCS: 36430; 43239; 45385; 71046; 93005; 96374; 96376; 99285; G0378; P9016; P9040; 80053-ER; 83010-90; 84484-ER; 85379-QW-ER; J2704; J2916; J3010